=== PATIENT | male | born 2000 | race Caucasian/White ===

== ENCOUNTER 2018-07-26 11:46 | Emergency (ER) | payer OTHER ==
[~2018-07-26] VITALS: Ht 175.3 cm; Wt 90.7 kg
[~2018-07-26 11:46] MED LIST: IBUPROFEN 800800 M1 PO; KEFLEX500 MG PO; MISC; ULTRAM 50MG TAB50 MG PO
[2018-07-26] MEDS ORDERED: KEFLEX500 M1 PO (12:13)
[2018-07-26] MEDS ORDERED: ACETAMINOPHEN-1 EAC1 PO (12:13)
[2018-07-26] MEDS ORDERED: BACTRIM DS TAB1 EACH PO (12:13)
[2018-07-26 12:23] VITALS: BP 150/96
== END 2018-07-26 12:24 | disposition home or self-care (01) ==
LOC: M.ERS 11:46
DX: L05.01 Pilonidal cyst with abscess (principal); F17.210 Nicotine dependence, cigarettes, uncomplicated